=== PATIENT | female | born 1975 | race American Indian/Alaskan Native ===

== ENCOUNTER 2020-10-13 09:45 | Emergency (ER) | payer OTHER ==
[2020-10-13 15:06] VITALS: BP 144/74
--- NOTE | 2020-10-13 16:20 | Cat Scan Report ---
CT head/brain wo con INDICATION / CLINICAL INFORMATION: 45 years Female; head trauma, headache, neck pain. TECHNIQUE: Routine CT head without contrast. All CT scans at this location are performed using CT dos e reduction for ALARA by means of automated exposure control. COMPARISON: None. FINDINGS: BRAIN / INTRACRANIAL CONTENTS: There is extensive cerebral white matter disease which is nonspecific though may reflect microvascular angiopathy. Additionally, there is encephalomalacia involving the le ft centrum semiovale and anterior left frontal lobes which may also reflect old infarcts; the finding s would be advanced for the patient's age and correlation would be needed at. The ventricular system is appropriate in size and configuration. There is no clear CT evidence of acu te intracranial hemorrhage or significant mass effect. ORBITS: No significant abnormality of visualized orbits. SINUSES / MASTOIDS: No significant abnormality in the visualized paranasal sinuses or mastoid air cat ls. CRANIOCERVICAL JUNCTION: No significant abnormality. ADDITIONAL FINDINGS: None. IMPRESSION: 1. There is extensive cerebral white matter disease as a detailed above which may reflect a microvasc ular angiopathy. 2. There is no clear CT evidence of acute intracranial hemorrhage. Signer Name: Bautista Gilliam MD Signed: 10/13/2020 4:15 PM Workstation Name: [id number]
--- NOTE | 2020-10-13 16:23 | Cat Scan Report ---
CT cervical spine wo con INDICATION / CLINICAL INFORMATION: 45 years Female; head trauma, headache, neck pain. TECHNIQUE: Axial CT images of the cervical spine were obtained. Sagittal and coronal reformatted images were pr oduced. All CT scans at this location are performed using CT dose reduction for ALARA by means of aut omated exposure control. COMPARISON: None available. FINDINGS: POST-SURGICAL CHANGES: None. ALIGNMENT: There is no significant spondylolisthesis involving the cervical spine. VERTEBRAE: The beam hardening from the body habitus degrades image quality. However, there is no nathan r CT evidence of acute fracture of the cervical spine. INTRAVERTEBRAL DISCS: There is a central disc protrusion at C3 L4 which appears to slightly encroach on the ventral cord. The neural foramen are patent. There is a more broad-based disc bulge at C4-5 wh ich mildly effaces the ventral subarachnoid space. There is mild right neural foraminal narrowing. The central spondylosis at C5-6 also appears to efface the ventral subarachnoid space. There is mild right neural foraminal narrowing at this level and at C6-7. PARASPINAL SOFT TISSUES: No definitive prevertebral soft tissue fluid collections are identified. ADDITIONAL FINDINGS: None. IMPRESSION: 1. There is no CT evidence of acute fracture involving the cervical spine Signer Name: Bautista Gilliam MD Signed: 10/13/2020 4:18 PM Workstation Name: [id number]
--- NOTE | 2020-10-13 19:14 | Emergency Department Report ---
ED Head Trauma HPI - General Chief complaint: Neck Pain/Injury Stated complaint: CEILING DROPPED ON ME Time Seen by Provider: 10/13/20 19:10 Source: patient Mode of arrival: Ambulatory Limitations: No Limitations - History of Present Illness Initial comments: 45-year-old female presents to the ER today with complaints of head injury. Patient states that she currently lives in a upstairs and downstairs townhouse. She states that she was laying her bed around 630 this morning when the ceiling in her room fell, and the sheet rock struck her in the top of her head. She denies any LOC. She does complain of headache, nausea and posterior neck pain. She reports no vomiting, vision changes, speech changes, numbness, tingling or focal weakness or any other symptoms at this time. MD Complaint: head injury -: Sudden - Related Data Previous Rx's Medication Instructions Recorded Last Taken Type Naproxen 500 mg PO BID PRN #20 tablet 10/13/20 Unknown Rx methOCARBAMOL [Robaxin TAB] 500 mg PO TID PRN #30 tab 10/13/20 Unknown Rx Allergies/Adverse reactions: Allergies Allergy/AdvReac Type Severity Reaction Status Date / Time latex Allergy Rash Verified 10/13/20 10:00 ED Review of Systems ROS: Stated complaint: CEILING DROPPED ON ME Other details as noted in HPI Comment: All other systems reviewed and negative Constitutional: denies: chills, fever Eyes: denies: eye pain, eye discharge, vision change ENT: denies: ear pain, throat pain, dental pain, hearing loss, epistaxis, congestion Respiratory: denies: cough, shortness of breath, SOB with exertion, SOB at rest, wheezing Cardiovascular: denies: chest pain, palpitations, dyspnea on exertion Gastrointestinal: nausea. denies: abdominal pain, vomiting, diarrhea, constipation, hematemesis, melena, hematochezia Genitourinary: denies: as per HPI, urgency, dysuria, frequency, hematuria, discharge, abnormal menses, dyspareunia Skin: denies: rash, lesions, change in color, change in hair/nails, pruritus Neurological: headache. denies: weakness, numbness, paresthesias, confusion, abnormal gait, vertigo Psychiatric: denies: anxiety, depression, auditory hallucinations, visual hallucinations, homicidal thoughts, suicidal thoughts Hematological/Lymphatic: denies: easy bleeding, easy bruising, swollen glands ED Past Medical Hx - Past Medical History Previous Medical History?: Yes Additional medical history: heart murmur - Surgical History Past Surgical History?: Yes Additional Surgical History: 4 C-Sections - Medications Home Medications: Home Medications Medication Instructions Recorded Confirmed Last Taken Type Naproxen 500 mg PO BID PRN #20 tablet 10/13/20 Unknown Rx methOCARBAMOL [Robaxin TAB] 500 mg PO TID PRN #30 tab 10/13/20 Unknown Rx ED Physical Exam - General Limitations: No Limitations General appearance: alert, in no apparent distress - Head Head exam: Present: atraumatic, normocephalic, normal inspection - Eye Eye exam: Present: normal appearance, PERRL, EOMI Pupils: Present: normal accommodation - ENT ENT exam: Present: normal exam, mucous membranes moist, TM's normal bilaterally - Neck Neck exam: Present: normal inspection, tenderness (Patient has diffuse midline tenderness, as well as bilateral paraspinal muscle tenderness), full ROM (She does have pain with range of motion of her neck.), other (No bruising, swelling, erythema or open wounds noted to the neck) - Respiratory Respiratory exam: Present: normal lung sounds bilaterally. Absent: respiratory distress, wheezes, rales, rhonchi, stridor - Cardiovascular Cardiovascular Exam: Present: regular rate, normal rhythm, normal heart sounds - GI/Abdominal GI/Abdominal exam: Present: soft. Absent: distended, tenderness, guarding, rebound - Back Exam Back exam: Present: normal inspection, full ROM - Neurological Exam Neurological exam: Present: alert, oriented X3, CN II-XII intact, normal gait - Psychiatric Psychiatric exam: Present: normal affect, normal mood - Skin Skin exam: Present: intact ED Course Vital Signs 10/13/20 10/13/20 10:01 15:04 Temperature 98.3 F Pulse Rate 87 83 Respiratory 18 16 Rate Blood Pressure 171/91 Blood Pressure 144/74 [Right] O2 Sat by Pulse 97 96 Oximetry - Radiology Data Radiology results: report reviewed Patient: ROSALBA SPENCE MR#: [id number] : 1975 Acct:[id number] Age/Sex: 45 / F ADM Date: 10/13/20 Loc: ED Attending Dr: Ordering Physician: JYOTI MIGUEL MD Date of Service: 10/13/20 Procedure(s): CT head/brain wo con Accession Number(s): [id number] cc: JYOTI MIGUEL MD CT head/brain wo con INDICATION / CLINICAL INFORMATION: 45 years Female; head trauma, headache, neck pain. TECHNIQUE: Routine CT head without contrast. All CT scans at this location are performed using CT dose reduction for ALARA by means of automated exposure control. COMPARISON: None. FINDINGS: BRAIN / INTRACRANIAL CONTENTS: There is extensive cerebral white matter disease which is nonspecific though may reflect microvascular angiopathy. Additionally, there is encephalomalacia involving the left centrum semiovale and anterior left frontal lobes which may also reflect old infarcts; the findings would be advanced for the patient's age and correlation would be needed at. The ventricular system is appropriate in size and configuration. There is no clear CT evidence of acute intracranial hemorrhage or significant mass effect. ORBITS: No significant abnormality of visualized orbits. SINUSES / MASTOIDS: No significant abnormality in the visualized paranasal sinuses or mastoid air cells. CRANIOCERVICAL JUNCTION: No significant abnormality. ADDITIONAL FINDINGS: None. IMPRESSION: 1. There is extensive cerebral white matter disease as a detailed above which may reflect a microvascular angiopathy. 2. There is no clear CT evidence of acute intracranial hemorrhage. Signer Name: Bautista Gilliam MD Signed: 10/13/2020 4:15 PM Workstation Name: [id number] Transcribed By: MR Dictated By: Bautista Gilliam MD Electronically Authenticated By: Bautista Gilliam MD Signed Date/Time: 10/13/201614 DD/ 11 TD/TT: Patient: ROSALBA SPENCE MR#: [id number] : 1975 Acct:[id number] Age/Sex: 45 / F ADM Date: 10/13/20 Loc: ED Attending Dr: Ordering Physician: JYOTI MIGUEL MD Date of Service: 10/13/20 Procedure(s): CT cervical spine wo con Accession Number(s): [id number] cc: JYOTI MIGUEL MD CT cervical spine wo con INDICATION / CLINICAL INFORMATION: 45 years Female; head trauma, headache, neck pain. TECHNIQUE: Axial CT images of the cervical spine were obtained. Sagittal and coronal reformatted images were produced. All CT scans at this location are performed using CT dose reduction for ALARA by means of automated exposure control. COMPARISON: None available. FINDINGS: POST-SURGICAL CHANGES: None. ALIGNMENT: There is no significant spondylolisthesis involving the cervical spine. VERTEBRAE: The beam hardening from the body habitus degrades image quality. However, there is no clear CT evidence of acute fracture of the cervical spine. INTRAVERTEBRAL DISCS: There is a central disc protrusion at C3 L4 which appears to slightly encroach on the ventral cord. The neural foramen are patent. There is a more broad-based disc bulge at C4-5 which mildly effaces the ventral subarachnoid space. There is mild right neural foraminal narrowing. The central spondylosis at C5-6 also appears to efface the ventral subarachnoid space. There is mild right neural foraminal narrowing at this level and at C6-7. PARASPINAL SOFT TISSUES: No definitive prevertebral soft tissue fluid collections are identified. ADDITIONAL FINDINGS: None. IMPRESSION: 1. There is no CT evidence of acute fracture involving the cervical spine Signer Name: Bautista Gilliam MD Signed: 10/13/2020 4:18 PM Workstation Name: [id number] Transcribed By: MR Dictated By: Bautista Gilliam MD Electronically Authenticated By: Bautista Gilliam MD Signed Date/Time: 10/13/201617 DD/ 14 TD/TT: - Medical Decision Making 45-year-old female presents to the ER today with complaints of head injury. Patient states that she currently lives in a upstairs and downstairs townhouse. She states that she was laying her bed around 630 this morning when the ceiling in her room fell, and the sheet rock struck her in the top of her head. She denies any LOC. She does complain of headache, nausea and posterior neck pain. She reports no vomiting, vision changes, speech changes, numbness, tingling or focal weakness or any other symptoms at this time. 1900: Patient has been in the ER waiting to be seen for about 9 hours. She is currently awake, alert oriented x3 with a GCS of 15 and she has no focal neurological deficits on exam. She recalls full event and what happened to her earlier this morning. She has a normal gait. CT head and neck shows nothing acute. Patient currently is not in any acute distress. She is not toxic or ill-appearing. Discussed imaging results with patient. Discussed suspected diagnosis and treatment plan with patient. There is no indication for any additional testing, admission or transfer at this time. Patient expressed understanding of all instructions and agree with plan. Patient was stable at time of discharge. Critical care attestation.: If time is entered above; I have spent that time in minutes in the direct care of this critically ill patient, excluding procedure time. ED Disposition Clinical Impression: Head injury, closed, without LOC, Cervical strain, Scalp contusion Disposition: DC- TO HOME OR SELFCARE Is pt being admited?: No Does the pt Need Aspirin: No Condition: Stable Instructions: Facial or Scalp Contusion, Cervical Sprain Additional Instructions: I recommend that you take the proximal and the muscle relaxer as prescribed to help with any pain. Follow-up closely with your primary care doctor. Return to the ER if your symptoms changes or worsens in any way. Prescriptions: Naproxen 500 mg PO BID PRN #20 tablet PRN Reason: pain methOCARBAMOL [Robaxin TAB] 500 mg PO TID PRN #30 tab PRN Reason: Muscle Spasm Referrals: YOLIE VICTOR MD [Staff Physician] - 3-5 Days Forms: Work/School Release Form(ED) Time of Disposition: 19:21
== END 2020-10-14 00:30 | disposition home or self-care (01) ==
LOC: ED 09:45
DX: S16.1XXA Strain of muscle, fascia and tendon at neck level, initial encounter (principal); S00.03XA Contusion of scalp, initial encounter; S09.90XA Unspecified injury of head, initial encounter; Z91.040 Latex allergy status; Z79.899 Other long term (current) drug therapy; Z98.890 Other specified postprocedural states; X58.XXXA Exposure to other specified factors, initial encounter; Y93.89 Activity, other specified; Y92.89 Other specified places as the place of occurrence of the external cause; Y99.8 Other external cause status
CPT/HCPCS: 70450; 72125